=== PATIENT | female | born 2000 ===

== ENCOUNTER 2020-11-10 18:08 | Outpatient (REF) | payer OTHER, SELFPAY ==
[2020-11-13 15:32] LABS: Chlamydia Result Negative (Negative); GC Result Negative (Negative)
== END 2020-11-10 18:09 | disposition home or self-care (01) ==
LOC: NCHCN 18:08
PROVIDERS: PCP Family Medicine; Visit Provider Family Medicine
DX: Z00.00 Encounter for general adult medical examination without abnormal findings (principal); Z11.3 Encounter for screening for infections with a predominantly sexual mode of transmission
CPT/HCPCS: 87491; 87591

== ENCOUNTER 2022-07-24 11:51 | Outpatient (REF) | payer MEDICAID, SELFPAY ==
--- NOTE | 2022-07-24 17:10 | PAPFT_PTH ---
PATIENT: Alina Lawson LOC: [facility] U#:[id number] AGE/SX: 22/F ROOM: RE07/24/[address]: Zina Guaman : 2000 BED: DIS: 07/24/2022 SPEC #: [id number] RECD: 07/25/22 13:11 STATUS: MELINDA REQ #: [id number] MILA: 07/24/22 17:[address]: Zina Guaman DEPT: [facility] Cytology RECD BY: Myla Morfin Tissues: 1 - CX/ENDOCX FOR PAP SMEARS Procedures: PAP THIN PREP/[facility] Screening Comments: (CHLAMYDIA/GC)
[2022-07-26 23:52] LABS: Chlamydia Result Negative (Negative); GC Result Negative (Negative)
== END 2022-07-24 11:52 | disposition home or self-care (01) ==
LOC: NCHCN 11:51
PROVIDERS: PCP Family Medicine; Visit Provider Family Medicine
DX: Z12.4 Encounter for screening for malignant neoplasm of cervix (principal); Z11.3 Encounter for screening for infections with a predominantly sexual mode of transmission
CPT/HCPCS: 87491; 87591; 88142